=== PATIENT | female | born 1980 | race Caucasian/White ===

== ENCOUNTER 2022-02-22 04:35 | Emergency (ER) | payer SELFPAY ==
[~2022-02-22] VITALS: Ht 152.4 cm; Wt 95.5 kg
[2022-02-22 04:57] VITALS: BP 128/59
== END 2022-02-22 06:56 | disposition left against medical advice (07) ==
LOC: ER 04:35
DX: R21 Rash and other nonspecific skin eruption (principal); Z53.21 Procedure and treatment not carried out due to patient leaving prior to being seen by health care provider